=== PATIENT | female | born 1980 | race Hispanic/Latino ===

== ENCOUNTER 2017-03-20 08:31 | Emergency (ER) | payer BC ==
[2017-03-20 08:36] VITALS: BMI 28.2
[2017-03-20 08:37] VITALS: BP 123/76; PULSE 64; RESP 18; TEMP 97.6; O2SAT 100
--- NOTE | 2017-03-20 09:20 | ED PDOC ---
Lower Extremity Pain/Injury Time Seen by Provider: 03/20/17 08:46 Chief Complaint (Nursing): Lower Extremity Problem/Injury Chief Complaint (Provider): Right lower extremity injury History Per: Patient History/Exam Limitations: no limitations Onset/Duration Of Symptoms: Hrs Current Symptoms Are (Timing): Still Present Additional Complaint(s): 37yo female, with no past medical history, presents to ED for evaluation of right lower extremity injury. Patient states she tripped and fell while walking her dog, injuring her right lower extremity in the process. Of note, she also fell last week while she was at a pharmacy and had injured her right lower leg and ankle. Currently states she can bear weight on her right lower extremity but with significant pain to her ankle. She reports soreness to her knee near the area of abrasion but denies any other knee pain. She reports tightness to right hip but denies any back pain or pelvis pain. She denies head or neck injuries during the fall. She has no other complaints. - Knee Description Of Injury: Fell - Ankle/Foot Description Of Injury: Fell Past Medical History Reviewed: Historical Data, Nursing Documentation, Vital Signs Vital Signs: Last Vital Signs Temp 97.6 F 03/20/17 09:01 Pulse 64 03/20/17 09:01 Resp 18 03/20/17 09:01 BP 123/76 03/20/17 09:01 Pulse Ox 100 03/20/17 09:01 - Medical History PMH: Anxiety - Surgical History Surgical History: Tonsillectomy - Family History Family History: States: No Known Family Hx - Living Arrangements Living Arrangements: With Family - Home Medications Home Medications: Ambulatory Orders Medication Instructions Recorded Acetaminophen/Hydrocodone Bi 1 tab PO Q4H PRN #15 tab 03/01/14 [Vicodin 300 mg-5 mg] Naproxen [Naprosyn] 500 mg PO BID PRN #14 tablet 03/20/17 - Allergies Allergies/Adverse Reactions: Allergies Allergy/AdvReac Type Severity Reaction Status Date / Time No Known Allergies Allergy Verified 03/20/17 08:59 Review of Systems ROS Statement: Except As Marked, All Systems Reviewed And Found Negative Musculoskeletal: Positive for: Leg Pain (right). Negative for: Neck Pain, Back Pain, Other (hip pain) Psych: Negative for: Other (head injury) Physical Exam - Reviewed Nursing Documentation Reviewed: Yes Vital Signs Reviewed: Yes - Physical Exam Appears: Positive for: Non-toxic Head Exam: Positive for: ATRAUMATIC, NORMAL INSPECTION, NORMOCEPHALIC Skin: Positive for: Normal Color Eye Exam: Positive for: Normal appearance Neck: Positive for: Supple Cardiovascular/Chest: Positive for: Regular Rate, Rhythm Extremity: Positive for: Normal ROM (FROM of hips.), Tenderness (point tenderness along ATF distribution. no achilles tenderness, no knee instability. ), Other (3cm abrasion noted to right inferior patella; old appearing ecchymosis noted to right mid-[place] and to the anterolateral foot/ankle.) Neurologic/Psych: Positive for: Alert, Oriented - ECG O2 Sat by Pulse Oximetry: 100 (RA) Pulse Ox Interpretation: Normal Medical Decision Making Medical Decision Making: Impression: Right lower extremity injury Plan: -- XR right foot -- XR right ankle -- TDAP booster -- Motrin 600mg PO -- Podiatry consult Reassess XRays read by radiologist as no acute fracture Podiatry consult performed and compression dressing w surgical shoe applied Rx naprosyn, given bacitracin sample for abrasion. Ambulating w crutches/ minimal weight bearing Scribe Attestation: Documented by Olive Langford acting as a scribe for Tera Hua DO. Provider Attestation: All medical record entries made by the Scribe were at my direction and personally dictated by me. I have reviewed the chart and agree that the record accurately reflects my personal performance of the history, physical exam, medical decision making, and the department course for this patient. I have also personally directed, reviewed, and agree with the discharge instructions and disposition. Disposition - Clinical Impression Clinical Impression: Ankle sprain, Abrasion - Patient ED Disposition Is Patient to be Admitted: No Counseled Patient/Family Regarding: Studies Performed, Diagnosis, Need For Followup, Rx Given - Disposition Referrals: Podiatry Clinic [Outside] Antoinette Abdi DPM [Staff Provider] - Disposition: Routine/Home Disposition Time: 10:10 Condition: STABLE Additional Instructions: Wear KONG compression wrap, use surgical shoe and crutches as provided. See phlebotomy lab assistant for followup as indicated. Use bacitracin 2x daily to knee abrasion for 5 days Prescriptions: Naproxen [Naprosyn] 500 mg PO BID PRN #14 tablet PRN Reason: Pain, Moderate (4-7) Instructions: Ankle Sprain (ED) Forms: [employer] ([place]e)
--- NOTE | 2017-03-20 09:46 | RAD ---
PROCEDURE: Right Ankle Radiographs. HISTORY: Right ankle trauma COMPARISON: Correlation made with concurrent radiographs of the right foot FINDINGS: BONES: No evidence of acute displaced fracture nor dislocation. Osseous structures appear intact. There are no cortical destructive changes. JOINTS: Normal. No osteoarthritis. Ankle mortise maintained. Talar dome intact SOFT TISSUES: There is moderate lateral and minimal medial soft tissue swelling with small joint effusion. OTHER FINDINGS: None. IMPRESSION: No evidence of acute displaced fracture nor dislocation. Moderate lateral and minimal medial soft tissue swelling with small joint effusion. If symptoms persist or occult fracture suspected clinically, recommend followup MRI.
--- NOTE | 2017-03-20 09:48 | RAD ---
PROCEDURE: Right foot dated 03/20/2017 HISTORY: Right foot trauma COMPARISON: Correlation made with concurrent radiographs right ankle FINDINGS: BONES: No evidence of acute displaced fracture nor dislocation. Osseous structures appear intact. JOINTS: Joint spaces preserved. No significant osteoarthritis . There is extension of the proximal phalanges of the 2nd 3rd 4th and to a lesser degree 5th digits likely positional. SOFT TISSUES: Moderate soft tissue swelling over the lateral to a lesser degree medial malleoli less well seen on this study as compared to dedicated ankle radiographs. OTHER FINDINGS: None. IMPRESSION: No evidence of acute displaced fracture nor dislocation. If symptoms persist or occult fracture suspected clinically consider repeat radiographs for the MRI.
--- NOTE | 2017-03-20 10:15 | CP.PCM.CON ---
History of Present Illness - History of Present Illness History of Present Illness: 37 year old female seen in ED for inversion ankle sprain that occurred while she was walking her dog causing her to fall. Patient denies hitting her head or LOC. Patient states that she had this same injury occur to her last weekend. Patient denies hearing any pops or cracks at time of injury and has been able to fully weightbear with only moderate amounts of pain to the lateral ankle. Patient states that she has a history of turning this ankle and came to the ED just to make sure nothing was fractured. Denies any further pedal complaints at this time. Denies any recent N/V/F/C/CP/SOB/D/posterior calf pain. Review of Systems - Review of Systems Review of Systems: ROS as per HPI Past Patient History - Past Social History Smoking Status: Never Smoked - PSYCHIATRIC Hx Anxiety: Yes - SURGICAL HISTORY Hx Tonsillectomy: Yes - ANESTHESIA Hx Anesthesia: Yes Hx Anesthesia Reactions: No Meds Home Medications: Home Medication List Medication Instructions Recorded Confirmed Type Naproxen [Naprosyn] 500 mg PO BID PRN #14 tablet 03/20/17 Rx Allergies/Adverse Reactions: Allergies Allergy/AdvReac Type Severity Reaction Status Date / Time No Known Allergies Allergy Verified 03/20/17 08:59 Physical Exam - Constitutional Appears: Well, Non-toxic, No Acute Distress - Extremities Exam Additional comments: RLE focused exam: Vasc: DP/PT pulses fully palpable 2/4 b/l. Skin temperature warm to warm from proximal to distal. CFT < 3 seconds to all digits b/l. Minimal edema noted to lateral ankle Neuro: Epicritic and protective sensation grossly intact b/l Derm: No ope lesions, wounds, maceration, xerosis or abnormal growths noted to right foot or ankle. Superficial abrasion and ecchymosis noted to right anterior leg. MSK: Minimal POP to peroneal tendons. No POP to lateral or medial malleolus, achilles tendon, achilles insertion site, styloid process of fifth metatarsal, navicular tuberosity. ROM WNL at ankle joint, Muscle strength 5/5 in all major muscle groups. Anterior drawer sign negative - Neurological Exam Neurological exam: Alert, Normal Gait, Oriented x3 - Psychiatric Exam Psychiatric exam: Normal Affect, Normal Mood Results - Vital Signs Recent Vital Signs: Last Vital Signs Temp 97.6 F 03/20/17 09:01 Pulse 64 03/20/17 09:01 Resp 18 03/20/17 09:01 BP 123/76 03/20/17 09:01 Pulse Ox 100 03/20/17 09:42 Assessment & Plan - Assessment and Plan (Free Text) Assessment: 37 year old female seen in ED for inversion ankle sprain, right side Plan: Patient seen and evaluated in ED Plan discussed with attending Dr. Abdi Foot and ankle xrays reviewed with no signs of fracture noted, minimal soft tissue swelling appreciated at level of lateral ankle Patients foot dressed with modified tracy compression wrap Patient dispensed crutches and advised to stay off of foot for next day or two before transitioning back into regular foot gear RICE therapy recommended Patient taught how to use crutches Patient advised that she can buy ankle brace and also taught ankle strengthening exercises to do at home in order to avoid future sprains Patient advised to follow up in podiatry clinic in one week if pain has not improved - Date & Time Date: 03/20/17 Time: 10:21
== END 2017-03-20 10:19 | disposition home or self-care (01) ==
LOC: H.ER 08:31
DX: S93.401A Sprain of unspecified ligament of right ankle, initial encounter (principal); S80.211A Abrasion, right knee, initial encounter; W19.XXXA Unspecified fall, initial encounter; Y93.K1 Activity, walking an animal; F41.9 Anxiety disorder, unspecified